=== PATIENT | male | born 1995 | race Two or more races ===

== ENCOUNTER 2017-02-08 09:51 | Emergency (ER) | payer OTHER ==
--- NOTE | ~2017-02-08 | CR142 ---
[facility] A Service of [facility] & [facility] RADIOLOGY TEXT RESULTS PATIENT: SHAWNEE NOVAK LOCATION: [facility] : [birth year] UNIT #: [id number] AGE: [address]: Savannah Quiñones APRN SEX: M ORDER DR: [id number] [facility] [address] [place], [place] [address] [id number] E MR#: [id number] Acc #: [id number] NAME: SHAWNEE NOVAK : 1995 SEX: M STUDY DATE/TIME: 02/08/2017 10:15 UNIT: [facility] ROOM: STUDY DESCRIPTION: CR Hand Min 3 Views Rt Attending Physician: Savannah Quiñones A.P.R.N. Ordering Physician: Ed Lg Greenwood M.D. Primary Care Physician: No Primary Care Physician MEDICAL IMAGING REPORT This report is preliminary unless electronic signature is present EXAM Right hand 02/08/2017 HISTORY 21-year-old male with right hand pain and swelling status post basketball injury 02/07/2017. COMPARISON Right wrist same date. FINDINGS 3 views of the right hand demonstrate a mildly impacted transverse oblique fracture through the proximal metaphysis of the fifth metacarpal. Articular surface disruption is not excluded. No dislocation. Soft tissue swelling over the ulnar aspect of the hand. IMPRESSION Mildly impacted and angulated transverse oblique fracture of the proximal metaphysis of the fifth metacarpal. Articular surface disruption is not excluded. No dislocation. Dictated by... Myron Dixon M.D. THIS IS AN ELECTRONICALLY VERIFIED REPORT Myron Dixon M.D. at 02/10/2017 8:36 AM BENITO/sophie TD: 02/09/2017 09:19 JOB #: [id number] MEDICAL IMAGING REPORT Page 1 of 1 COPY
--- NOTE | ~2017-02-08 | CR282 ---
[facility] A Service of [facility] RADIOLOGY TEXT RESULTS PATIENT: SHAWNEE NOVAK LOCATION: [facility] : [birth year] UNIT #: [id number] AGE: [address]: Savannah Quiñones APRN SEX: M ORDER DR: [id number] [facility] [address] [place], [place] [address] [id number] E MR#: [id number] Acc #: [id number] NAME: SHAWNEE NOVAK : 1995 SEX: M STUDY DATE/TIME: 02/08/2017 10:16 UNIT: [facility] ROOM: STUDY DESCRIPTION: CR Wrist Min 3 View Rt Attending Physician: Savannah Quiñones A.P.R.N. Ordering Physician: Ed Lg Greenwood M.D. Primary Care Physician: No Primary Care Physician MEDICAL IMAGING REPORT This report is preliminary unless electronic signature is present EXAM Right wrist 02/08/2017 HISTORY 21-year-old male with right wrist pain and swelling status post basketball injury 02/07/2017. COMPARISON Right hand same date. FINDINGS 3 views of the right wrist demonstrate a mildly impacted and angulated transverse oblique fracture through the proximal metaphysis of the fifth metacarpal. There is apex dorsal angulation. Articular surface disruption is not excluded. No dislocation. Soft tissue swelling over the ulnar aspect of the hand. The wrist is otherwise intact. IMPRESSION Mildly impacted and angulated transverse oblique fracture through the proximal metaphysis of the fifth metacarpal. Articular surface disruption is not excluded. No dislocation Dictated by... Myron Dixon M.D. THIS IS AN ELECTRONICALLY VERIFIED REPORT Myron Dixon M.D. at 02/10/2017 8:36 AM BENITO/sophie TD: 02/09/2017 09:24 JOB #: [id number] MEDICAL IMAGING REPORT [facility] A Service of [facility] RADIOLOGY TEXT RESULTS PATIENT: SHAWNEE NOVAK LOCATION: [facility] : [birth year] UNIT #: [id number] AGE: [address]: Savannah Quiñones APRN SEX: M ORDER DR: Page 1 of 1 COPY
[~2017-02-08 09:51] MED LIST: AMOXIL500 MG PO; GUAIFENESIN200 MG PO; IBUPROFEN800 MG PO; MAGIC MOUTHWASH PO; MEDROL4 MG/DOSE- PO; PREDNISONE PO; ZYRTEC-D T1 TAB.SR1 PO; ZYRTEC10 M2 PO
== END 2017-02-08 11:25 | disposition home or self-care (01) ==
LOC: CED 09:51
DX: S62.306A Unspecified fracture of fifth metacarpal bone, right hand, initial encounter for closed fracture (principal); F17.210 Nicotine dependence, cigarettes, uncomplicated; X58.XXXA Exposure to other specified factors, initial encounter; Y92.89 Other specified places as the place of occurrence of the external cause
CPT/HCPCS: 29125; 73110; 73130; 99283